=== PATIENT | female | born 1960 | race Caucasian/White ===

== ENCOUNTER → 2020-12-22 08:12 | Outpatient (BNVA) | payer MEDICARE, MEDICAID, SELFPAY | PROVIDERS: PCP Internal Medicine; Visit Provider Surgery | DX: G20 Parkinson's disease (principal) | CPT/HCPCS: 99202 ==

== ENCOUNTER 2021-01-06 07:53 | Day surgery (SDC) | payer MEDICARE, MEDICAID, SELFPAY ==
--- NOTE | 2021-01-02 08:51 | HO.ANESPROP2 ---
Documented by User: Sonja Espinoza NP 01/02/21 08:53 HPI - Anesthesia Eval Consult details Narrative: 60yo F for Percutaneous Endoscopic Gastrostomy - Jejunostomy Tube Placement PMFSH Active Problems Active Problems: All Active Problems (Updated 12/30/20 @ 10:45 by Radha Adler RN) Hx of appendectomy (Acute) Diabetes mellitus (Acute) Hypertension (Acute) Parkinsons disease (Acute) Past Medical History Medical History COVID-19 vaccine series completed Depression Diabetes mellitus Hypertension Hypothyroid Parkinsons disease Surgical History Surgical History Hx of appendectomy No pertinent past surgical history Social History Social History Are you a primary director of career resources to a significant other at home: No Do you presently have visiting nurse or other home services: Yes (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 If so, by whom?: No Are you DNR?: No Advance Directives: No Advance Directives Information Provided: Yes (Instructions mailed) Advance Directives on File: No Recently lost weight without trying: No Eating poorly because of decreased appetite: No Nutrition Risks: No Nutritional Risk Patient : No Meds Allergies Allergy/AdvReac Type Severity Reaction Status Date / Time No Known Allergies Allergy Verified 01/06/21 08:06 Home Medications Medication Instructions Recorded Confirmed Last Taken Type amantadine HCl 100 mg tablet 100 mg PO BID 12/22/20 12/30/20 Unknown History atorvastatin 40 mg tablet 40 mg PO DAILY 12/22/20 12/30/20 Unknown History carbidopa 25 mg-levodopa 100 mg 2 tab PO QID 12/22/20 12/30/20 Unknown History tablet carbidopa ER 50 mg-levodopa 200 mg 1 tab PO TID 12/22/20 12/30/20 Unknown History tablet,extended release diclofenac sodium 75 mg 75 mg PO BID 12/22/20 12/30/20 Unknown History tablet,delayed release entacapone 200 mg tablet 200 mg PO QID 12/22/20 12/30/20 Unknown History escitalopram oxalate 10 mg tablet 10 mg PO DAILY 12/22/20 12/30/20 Unknown History levothyroxine 100 mcg tablet 100 mcg PO DAILY 12/22/20 12/30/20 Unknown History lisinopril 2.5 mg tablet 2.5 mg PO DAILY 12/22/20 12/30/20 Unknown History metformin 500 mg tablet 500 mg PO BID 12/22/20 12/30/20 Unknown History midodrine 2.5 mg tablet 2.5 mg PO TID 12/22/20 12/30/20 Unknown History ropinirole 2 mg tablet 2 mg PO TID 12/22/20 12/30/20 Unknown History sitagliptin 50 mg tablet (Januvia) 50 mg PO DAILY 12/22/20 12/30/20 Unknown History trazodone 50 mg tablet 50 mg PO BEDTIME 12/22/20 12/30/20 Unknown History Exam Exam Date and Time: January 02, 2021 0851 Assessment and Plan Assessment Anesthesia Assessment: Chart Reviewed Documented by User: Aimee Santacruz MD 01/06/21 09:27 [facility] Past Medical History Medical History COVID-19 vaccine series completed Depression Diabetes mellitus Hypertension Hypothyroid Parkinsons disease Family History Family history of problems with anesthesia: No Surgical History Surgical History Hx of appendectomy No pertinent past surgical history History of Problems with Anesthesia: No Social History Social History Are you a primary director of career resources to a significant other at home: No Do you presently have visiting nurse or other home services: Yes (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 If so, by whom?: No Are you DNR?: No Advance Directives: No Advance Directives Information Provided: Yes (Instructions mailed) Advance Directives on File: No Recently lost weight without trying: No Eating poorly because of decreased appetite: No Nutrition Risks: No Nutritional Risk Patient : No Meds Allergies Allergy/AdvReac Type Severity Reaction Status Date / Time No Known Allergies Allergy Verified 01/06/21 08:06 Home Medications Medication Instructions Recorded Confirmed Last Taken Type amantadine HCl 100 mg tablet 100 mg PO BID 12/22/20 12/30/20 Unknown History atorvastatin 40 mg tablet 40 mg PO DAILY 12/22/20 12/30/20 Unknown History carbidopa 25 mg-levodopa 100 mg 2 tab PO QID 12/22/20 12/30/20 Unknown History tablet carbidopa ER 50 mg-levodopa 200 mg 1 tab PO TID 12/22/20 12/30/20 Unknown History tablet,extended release diclofenac sodium 75 mg 75 mg PO BID 12/22/20 12/30/20 Unknown History tablet,delayed release entacapone 200 mg tablet 200 mg PO QID 12/22/20 12/30/20 Unknown History escitalopram oxalate 10 mg tablet 10 mg PO DAILY 12/22/20 12/30/20 Unknown History levothyroxine 100 mcg tablet 100 mcg PO DAILY 12/22/20 12/30/20 Unknown History lisinopril 2.5 mg tablet 2.5 mg PO DAILY 12/22/20 12/30/20 Unknown History metformin 500 mg tablet 500 mg PO BID 12/22/20 12/30/20 Unknown History midodrine 2.5 mg tablet 2.5 mg PO TID 12/22/20 12/30/20 Unknown History ropinirole 2 mg tablet 2 mg PO TID 12/22/20 12/30/20 Unknown History sitagliptin 50 mg tablet (Januvia) 50 mg PO DAILY 12/22/20 12/30/20 Unknown History trazodone 50 mg tablet 50 mg PO BEDTIME 12/22/20 12/30/20 Unknown History Exam Height,Weight and Vital Signs: Height 5 ft 9 in Weight 74.843 kg Vital Signs Temp Pulse Resp BP Pulse Ox 01/06/21 08:48 96.9 F 84 18 153/89 H 99 Pertinent Lab Results Pertinent Lab Results: Lab Results 01/06/21 01/06/21 01/06/21 Range/Units 08:16 08:16 08:34 WBC 6.4 (4.8-10.8) X10*3/uL RBC 4.31 (4.20-5.50) X10*6/uL Hgb 13.5 (12.0-16.0) g/dl Hct 37.9 (37-47) % MCV 87.9 (80-98) fL MCH 31.3 (27.0-33.0) pg MCHC 35.6 H (31.0-35.0) g/dl RDW 13.3 (11.0-16.0) % Plt Count 192 (160-400) X10*3/uL MPV 10.0 (9.4-12.3) fL Absolute Nucleated RBC 0.000 (0.0-0.012) X10*3/uL Nucleated RBC % (auto) 0.0 (0.0-0.2) /100WBC Sodium 138 (135-145) mmol/L Potassium 4.2 (3.3-5.1) mmol/L Chloride 102 (96-108) mmol/L Carbon Dioxide 24 (22-29) mmol/L Anion Gap 16 (12-20) BUN 21 H (9-16) mg/dL Creatinine 0.75 (0.5-1.4) mg/dL Estim Creat Clear Calc TNP Estimated GFR > 60 POC Glucose 199 H (60-115) mg/dL Fasting Glucose 203 H (60-99) mg/dL Calcium 9.9 (8.4-10.2) mg/dL Airway Mallampati Class: III (Small mouth opening) TM Dist: >3cm Neck ROM: Full Loose/Missing/Broken Teeth: Yes (1 missing) Heart: RRR Lungs: CTAB Assessment and Plan Assessment Anesthesia Assessment: Anesthesia Plan Discussed Final Anesthetic Review Family History of Problems with Anesthesia: No History of Problems with Anesthesia: No NPO: Yes ASA Class: III Final Preanesthetic Review: No Changes in Pt Med Stat, Meds/Allgs Chart Reviewed, Consent Obtained/Reviewed and Anes Risks/Benef Reviewed Patient Risk: Intermediate Procedure Risk: Low Assessment/Block/Sedation in SS: Assess/Block/Sedation-SS Anesthetic Plan Anesthetic Plan: GA and MAC: Disposition: Standard PACU
--- NOTE | 2021-01-06 | ECG_ITS ---
Test Reason : PRE OP Blood Pressure : / mmHG Vent. Rate : 084 BPM Atrial Rate : 084 BPM P-R Int : 166 ms QRS Dur : 076 ms QT Int : 366 ms P-R-T Axes : 021 032 073 degrees QTc Int : 432 ms Normal sinus rhythm T wave abnormality, consider anterolateral ischemia Abnormal ECG No previous ECGs available Referred By: Sonja Espinoza Electronically Signed By:JOANIE JACOBS MD
--- NOTE | ~2021-01-06 | FL_ITS ---
EXAMINATION: XR FLUOROSCOPY WITH IMAGES CLINICAL INFORMATION: Jejunostomy tube placement. COMPARISON: None. TECHNIQUE: Fluoroscopy performed by Dr. Fontanez. Fluoroscopy time: 39.8 secs DAP: 9.75 mGy Images: 1 FL/FL guidance in OR FINDINGS/IMPRESSION: Fluoroscopy was performed for procedural guidance. Please refer to the procedure report for more detailed findings.
[2021-01-06 08:32] LABS: Hematocrit 37.9 % (37-47); Hemoglobin 13.5 g/dl (12.0-16.0); Mean Corpuscular HGB Conc 35.6 g/dl (31.0-35.0); Mean Corpuscular Hemoglobin 31.3 pg (27.0-33.0); Mean Corpuscular Volume 87.9 fL (80-98); Platelet Count 192 X10*3/uL (160-400); Red Blood Count 4.31 X10*6/uL (4.20-5.50); Red Cell Distribution Width 13.3 % (11.0-16.0); White Blood Count 6.4 X10*3/uL (4.8-10.8)
[2021-01-06 08:38] LABS: Glucose, Whole Blood 199 mg/dL (60-115)
[2021-01-06 08:48] VITALS: BP 153/89; PULSE 84; RESP 18; TEMP 36.1; O2SAT 99
[2021-01-06 08:48] LABS: Anion Gap 16 (12-20); Blood Urea Nitrogen 21 mg/dL (9-16); Calcium 9.9 mg/dL (8.4-10.2); Carbon Dioxide 24 mmol/L (22-29); Chloride 102 mmol/L (96-108); Estimated Glomerular Filt Rate > 60; Glucose Fasting 203 mg/dL (60-99); Potassium 4.2 mmol/L (3.3-5.1); Sodium 138 mmol/L (135-145)
[2021-01-06] MEDS: Lactated Ringers 1,000 ML 100 ML IVCONT (08:53)
[2021-01-06 08:56] VITALS: BMI 24.3
--- NOTE | 2021-01-06 11:32 | P.OP_ITS ---
Operative Note Operative Note Date of Service: 01/06/21 Narrative: Preop diagnosis: Parkinson's disease Postop diagnosis: Parkinson's disease Procedure: Placement of PEG J-tube for Duodopa enteric infusion Surgeon: Sinan Fontanez MD assistant construction superintendent: MARY JANE Jackson The patient is a 60 year female with progressive Parkinson's disease. She was therefore referred to me for PEG J tube placement for enteric infusion of Duodopa as treatment. She and her daughter Juani understood the technique of the planned procedure as well as the risks, benefits, and alternatives. She had given consent. She was brought to the operating room placed supine with a bit of a head up p osition under monitored anesthesia care. A surgical time-out was done. A bite block was in position I then proceeded to insert the gastroscope through the bite block into the oropharynx. The vocal cords were visualized. The esophageal slit was seen posterior to this. The esophageal was intubated and the scope was gently advanced through the entire length of the esophagus all the way to the stomach. The stomach was insufflated to distend this. We were easily able to visualize transillumination on the abdominal wall in the epigastric area. Furthermore, pressure with the finger on the abdominal wall on this exact area showed indentation of the anterior wall easily seen with the endoscope. This area was prepped and draped. Lidocaine 1% was used for local anesthesia. I made a short incision on this using blade 11. I inserted the needle with the cannula through this area and this was advanced in the stomach lumen. This was directly visualized. The needle was removed and the cannula was left in place. We then proceeded to advance the double thread through this cannula/introducer device and this was grasped with a snare through the endoscope. We then pulled up this double thread with the endoscope all the way through the esophagus and out through the oral cavity. The double thread was looped around the other end of the Abbvie PEG tube. We then pulled the double thread from the abdominal wall along with the PEG tube until this felt snug on the anterior stomach wall. I reinserted the gastroscope all the way to the stomach and examined this showed that the retention plate appeared to be in good position and in place. We then proceeded advance the Abbvie PEG-Jejunostomy through the PEG tube all the way to the stomach lumen. The tip of this PEG J was grasped with a biopsy forceps. We then proceeded to advance the scope along with the PEG J through the pyloric orifice, through the C loop of the duodenum. We reached the very hub of the endoscope. We therefore checked fluoroscopically to determine our location and it appeared that the images suggested that we were just at the 2nd part of the duodenum. We did not have enough length of the gastroscope so I decided to repeat this peg J insertion part using the pediatric colonoscope for more length. I therefore pulled out the gastroscope. I advanced the pediatric colonoscope through the oropharynx all the way to the stomach. I then re- grabbed the PEG tube tip with the biopsy forceps and advanced the scope again all the way through the pyloric orifice, into the C-loop of the duodenum all the way to what I felt was the jejunum past the ligament of Treitz. We had to do this procedure twice before were able to clearly confirmed good location of the tip of the PEG J-tube past the midline using fluoroscopy with the C-arm. Once this was achieved, I proceeded to then carefully withdraw the scope, providing slack to the biopsy forceps to keep the PEG J-tube in place in the jejunum and to make sure that we were not dragging the PEG J-tube with the endoscope. Once the colonoscope was in the stomach, proceeded to gently release the biopsy forceps from the PEG J-tube and pull the biopsy forceps in the stomach lumen, observing the PEG J-tube to make sure that we were not dragging this with the biopsy forceps. Once this was done, I proceeded to desufflate and pulled out the pediatric colonoscope completely. I took another fluoroscopic image with the C-arm and this confirmed that the tip of the PEG J-tube was past the midline, confirming that this was past the ligament of Treitz as well. The procedure was therefore completed. The PEG J-tube was secured to the skin by tightening the external retention plate to make this snug on the abdominal wall. The patient tolerated the procedure well. There were no complications noted. The patient was awakened in the operating room transferred to the recovery room with stable vital signs. The patient's daughter was given instructions on care of this PEG J-tube. A nurse will be visiting them at home as well to help with care.
[2021-01-06 11:33] VITALS: BP 177/91; PULSE 66; RESP 16; TEMP 36.1; O2SAT 98
[2021-01-06 11:38] VITALS: BP 174/81; PULSE 67; RESP 17; O2SAT 99
[2021-01-06 11:43] VITALS: BP 172/88; PULSE 71; RESP 17; O2SAT 100
--- NOTE | 2021-01-06 11:45 | P.BOP_ITS ---
Brief Operative Note Date of Service: 01/06/21 Pre-op diagnosis: Parkinson's disease Post-op diagnosis: same Procedure: PEG J-tube placement for Duodopa enteric infusion Surgeon: Sinan Fontanez MD Anesthesia: MAC Was an Svp Monetization used for this Procedure?: Yes Svp Monetization: Tanisha Jackson Estimated blood loss (mL): 3 Pathology: none sent Condition: stable Disposition: PACU
[2021-01-06 11:48] VITALS: BP 178/92; PULSE 76; RESP 17; O2SAT 100
[2021-01-06 12:03] VITALS: BP 175/96; PULSE 80; RESP 16; TEMP 36.1; O2SAT 98
== END 2021-01-06 13:04 | disposition home or self-care (01) ==
PROVIDERS: Nurse Practitioner; PCP Internal Medicine; Visit Provider Surgery
PROC: 0DH63UZ Insertion of Feeding Device into Stomach, Percutaneous Approach (ICD-10-PCS; CPT 43246; principal; 2021-01-06 10:10)
DX: G20 Parkinson's disease (principal); I10 Essential (primary) hypertension; E11.9 Type 2 diabetes mellitus without complications; Z79.84 Long term (current) use of oral hypoglycemic drugs; Z79.899 Other long term (current) drug therapy
CPT/HCPCS: 43246; 36415; 80048; 82947; 85027; 93005; J0690; J2250; J3010

== ENCOUNTER → 2021-01-19 13:58 | Outpatient (BNVA) | payer MEDICARE, MEDICAID, SELFPAY | PROVIDERS: PCP Internal Medicine; Visit Provider Surgery | DX: G20 Parkinson's disease (principal) | CPT/HCPCS: 99212 ==

== ENCOUNTER → 2021-10-14 10:52 | Outpatient (BNVA) | payer MEDICARE, MEDICAID, SELFPAY | PROVIDERS: PCP Internal Medicine; Visit Provider Psychiatry & Neurology Neurology | DX: G20 Parkinson's disease (principal); R29.6 Repeated falls | CPT/HCPCS: 99212 ==

== ENCOUNTER → 2021-11-09 10:24 | Outpatient (BNVA) | payer MEDICARE, MEDICAID, SELFPAY | PROVIDERS: PCP Internal Medicine; Visit Provider Psychiatry & Neurology Neurology | DX: G20 Parkinson's disease (principal); R29.6 Repeated falls | CPT/HCPCS: 99212 ==

== ENCOUNTER → 2022-01-06 09:23 | Outpatient (BNVA) | payer MEDICARE, MEDICAID, SELFPAY | PROVIDERS: PCP Internal Medicine; Visit Provider Psychiatry & Neurology Neurology | DX: G20 Parkinson's disease (principal); R29.6 Repeated falls | CPT/HCPCS: 99212 ==

== ENCOUNTER → 2022-04-14 08:49 | Outpatient (BNVA) | payer MEDICARE, MEDICAID, SELFPAY | PROVIDERS: PCP Internal Medicine; Visit Provider Psychiatry & Neurology Neurology | DX: G20 Parkinson's disease (principal); R29.6 Repeated falls; I95.1 Orthostatic hypotension; Z79.899 Other long term (current) drug therapy | CPT/HCPCS: 99212 ==

== ENCOUNTER → 2022-07-08 10:30 | Outpatient (BNVA) | payer MEDICARE, MEDICAID, SELFPAY | PROVIDERS: PCP Internal Medicine; Visit Provider Psychiatry & Neurology Neurology | DX: G20 Parkinson's disease (principal); R29.6 Repeated falls; I95.1 Orthostatic hypotension; Z79.899 Other long term (current) drug therapy | CPT/HCPCS: 99212 ==

== ENCOUNTER → 2022-10-19 08:20 | Outpatient (BNVA) | payer MEDICARE, MEDICAID, SELFPAY | PROVIDERS: PCP Internal Medicine; Visit Provider Psychiatry & Neurology Neurology ==

== ENCOUNTER 2022-10-19 09:17 | Outpatient (AMB) | payer MEDICARE, MEDICAID, SELFPAY ==
--- NOTE | 2022-10-19 08:21 | MHC.OFFVIS ---
Intake Intake Visit Reasons: Follow up for Parkinsons Intake Note: F/U Parkinsons. per daughter does not walk anymore, uses diapers has hospital bed. Quality Engineer Medical Device Required: Yes Quality Engineer Medical Device Name: Juani Allergies No Known Allergies Allergy (Verified 10/19/22 08:22) HPI HPI Comments History of Present Illness Details 62y/o female calls for follow up.She has worsened since her last visit. she does not walk, is unable to stand and needs help with all her ADLs. No falls. Her hallucinations are worse and also delusional Her weakness is better with midodrine. No exercise she is dyskinetic Her memory is worse, lets the digs out at night and forgets to brings them back Her decline started after her had a triple bypass. 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) Alcohol intake: never Patient Tobacco Use Status: Never used Tobacco Use of substances other than those prescribed or required for medical reasons: No Assessment & Plan Assessment & Plan (1) Parkinsons disease: Code(s): G20 - Parkinson's disease (2) Hallucinations: Code(s): R44.3 - Hallucinations, unspecified (3) Orthostatic hypotension: Code(s): I95.1 - Orthostatic hypotension (4) Falls frequently: Code(s): R29.6 - Repeated falls Plan: likely related to her orthostatic changes Plan Duopa dose MD 11 ml and continuous dose 4.3 ml continue amantadine 100mg bid decrease requip 1mg 1/2 tab 9am- 1pm- 7pm midodrine 10 mg tid lexapro 10mg qd Increase nuplazid 34mg qd VNA for home PT Monitor Orthostatic BP and patients daughter will send me info via patient portal. will consider adding northera suggested compression socks , increase fluid will consider adding memantine or donepezil Orders: Referrals [facility] Referral G20 - Parkinson's disease Medications: New pimavanserin (Nuplazid) 34 mg PO DAILY 30 caps 6RF Discontinued pimavanserin (Nuplazid) Discontinued Reason: Patient no longer taking 10 mg PO DAILY 30 tabs 6RF Telehealth Telehealth Location of provider rendering services: practice address Location of patient: address on file Patient Identification confirmed using: Name, : Yes Telehealth method: voice only Patient verbally consented to treatment: Yes Patient verbally consented to billing insurance company: Yes Patient informed of any privacy concerns related to visit: Yes Minutes spent on Phone/Video with Pt.: 22 Coding Level of Care Code Tele Est Pt Level 4 (47958) Diagnoses Parkinsons disease G20 Hallucinations R44.3 Orthostatic hypotension I95.1 Falls frequently R29.6 Time Spent (min) 22
== END 2022-10-19 10:39 | disposition home or self-care (01) ==
PROVIDERS: PCP Internal Medicine; Visit Provider Psychiatry & Neurology Neurology
DX: G20 Parkinson's disease (principal); R44.3 Hallucinations, unspecified; I95.1 Orthostatic hypotension; R29.6 Repeated falls
CPT/HCPCS: 99443

== ENCOUNTER 2024-03-09 14:06 | Outpatient (AMB) | payer MEDICARE, MEDICAID, SELFPAY ==
--- NOTE | 2024-03-09 14:06 | MHC.OFFVIS ---
Intake Visit Reasons: Follow up Intake Note: Patient presents for follow up Allergies No Known Allergies Allergy (Verified 03/09/24 14:07) Medication List - Last Reconciled 03/09/24 by Caryn Amin MD amantadine HCl 100 mg PO BID atorvastatin 40 mg PO DAILY blood sugar diagnostic (Jennyfer No Coding strips) As directed diclofenac sodium 75 mg PO BID entacapone 200 mg PO QID escitalopram oxalate 10 mg PO DAILY lancets (Prodigy Twist Top Lancet) As directed levothyroxine 112 mcg PO DAILY magnesium oxide 250 mg PO DAILY metformin 1,000 mg PO BID midodrine 10 mg PO TID ondansetron HCl 4 mg PO Q8H PRN pen needle, diabetic (BD Leigh 2nd Gen Pen Needle) As directed pimavanserin (Nuplazid) 34 mg PO DAILY ropinirole 0.5 mg PO TID 90 days semaglutide (Ozempic) mg subcut HPI Comments Details: 63y/o female calls for follow up. She has worsened since her last visit. she does not walk, is unable to stand and needs help with all her ADLs. she has 24 hrs care. she has a hospital bed. Her cognition is worse. SHe does not recognize her grand son, confabulates. Her hallucinations are same and also delusional Her weakness is better with midodrine. No exercise she is dyskinetic she is comfortable and not in pain. 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) [facility] Medical History Hallucinations COVID-19 vaccine series completed Depression Hypothyroid Diabetes mellitus Hypertension Parkinsons disease Surgical History Hx of appendectomy No pertinent past surgical history Social History Are you a primary career technical education teacher to a significant other at home: No Do you presently have visiting nurse or other home services: Yes ([employer] - daughter) Alcohol intake: never Comment: Has Parkinsons - Gait unsteady Patient Tobacco Use Status: Never used Tobacco Telehealth Telehealth Telehealth Platform: Telephone Location of provider rendering services: practice address Location of patient: address on file Patient Identification confirmed using: Name, : Yes Telehealth method: voice only Patient verbally consented to treatment: Yes Patient verbally consented to billing insurance company: Yes Patient informed of any privacy concerns related to visit: Yes Assessment & Plan Assessment & Plan (1) Parkinsons disease: Comment: advanced Code(s): G20 - Parkinson's disease Category: Medical Qualifiers: Dyskinesia presence: with dyskinesia Fluctuating manifestations: with fluctuating manifestations Qualified Code(s): G20.B2 - Parkinson's disease with dyskinesia, with fluctuations (2) Hallucinations: Code(s): R44.3 - Hallucinations, unspecified Category: Medical (3) Orthostatic hypotension: Code(s): I95.1 - Orthostatic hypotension Category: Medical (4) Falls frequently: Code(s): R29.6 - Repeated falls Category: Medical Plan: likely related to her orthostatic changes Plan Duopa dose MD 11 ml and continuous dose 4.3 ml continue amantadine 100mg bid Stop requip 1mg 1/2 tab 9am- 1pm- 7pm midodrine 10 mg tid lexapro 10mg qd nuplazid 34mg qd VNA for blood work Monitor Orthostatic BP and patients daughter will send me info via patient portal. will consider adding northera suggested compression socks , increase fluid continue supportive care clonazepam 0.125 mg qhs Orders: Referrals [facility] Referral G20.B2 - Parkinson's disease with dyskinesia, with fluctuations Medications: New memantine ER PO PER PKG DIR 1 ea 0RF clonazepam administer 30 minutes before bedtime 0.125 mg PO BEDTIME 30 tabs 3RF Discontinued entacapone administer at the same time as l-dopa/carbidopa dose Discontinued Reason: Patient no longer taking 200 mg PO QID 120 tabs 3RF Coding Level of Care Code Tele Est Pt Level 4 (19461) Complex EM visit Add On G2211 Diagnoses Parkinson's disease with dyskinesia and fluctuating manifestations G20.B2 Dyskinesia presence: with dyskinesia Fluctuating manifestations: with fluctuating manifestations Hallucinations R44.3 Orthostatic hypotension I95.1 Falls frequently R29.6 Time Spent (min) 25
== END 2024-03-12 11:32 | disposition home or self-care (01) ==
LOC: HO.HSMS 14:06
PROVIDERS: PCP Internal Medicine; Visit Provider Psychiatry & Neurology Neurology
DX: G20.B2 Parkinson's disease with dyskinesia, with fluctuations (principal); R44.3 Hallucinations, unspecified; I95.1 Orthostatic hypotension; R29.6 Repeated falls
CPT/HCPCS: 99443; G2211